=== PATIENT | male | born 1940 | race Caucasian/White ===

== ENCOUNTER 2018-01-09 12:48 | Emergency (ER) | payer MEDICARE, OTHER ==
[2018-01-09] MEDS ORDERED: Silver Nitrate Applicator Each TOP ONE (14:01)
--- NOTE | 2018-01-09 14:38 | EDM.PDOC ---
ED HPI GENERAL MEDICAL PROBLEM - General Chief Complaint: ENT Problem Stated Complaint: NOSE BLEED Time Seen by Provider: 01/09/18 13:30 Source of Information: Reports: Patient History Limitations: Reports: No Limitations - History of Present Illness INITIAL COMMENTS - FREE TEXT/NARRATIVE: Jose is a 77-year-old male, history of heart failure, on an LVAD, on Coumadin who presents to the emergency department today with a nosebleed that started at 11:00 this morning. Patient blew his nose when he appreciated a small clot that came out of his left naris has had ongoing bleeding since that time. Patient denies any chest pain, lightheadedness or dizziness. Patient's last INR was checked on Friday and was 3.1 at that time. Onset: Today, Sudden - Related Data Allergies Allergy/AdvReac Type Severity Reaction Status Date / Time No Known Allergies Allergy Verified 04/04/16 11:28 Home Meds: Home Meds Acetaminophen [Tylenol] 650 mg PO Q6H 04/03/16 [History] Amiodarone [Cordarone] 1 tab PO DAILY 04/03/16 [History] Ascorbic Acid [C-1000] 1,000 mg PO DAILY 04/03/16 [History] Digoxin [Digox] 125 mg PO DAILY 04/03/16 [History] Docusate Sodium 100 mg PO DAILY PRN 04/03/16 [History] Fish Oil/[place]-3 Fatty Acids [Fish Oil 1,000 MG] 1 gr PO BID 04/03/16 [History] Folic Acid 1 mg PO DAILY 04/03/16 [History] Gabapentin [Neurontin] 200 mg PO TID 04/03/16 [History] Glucosamine HCl 1,200 mg PO BID 04/03/16 [History] Hydrocodone/Acetaminophen [Hydrocodon-Acetaminophen 5-325] 1 tab PO Q6H [History] Levothyroxine 1 tab PO QAM 04/03/16 [History] Multivitamin [Multi-Vitamin Daily] 1 tab PO DAILY 04/03/16 [History] Octreotide Acetate,Mi-Spheres [Sandostatin Lar Depot] 1 dose INJECT ASDIRECTED 04/03/16 [History] Omeprazole 1 cap PO BID 04/03/16 [History] Polyethylene Glycol 3350 [Glycolax] 17 gm PO DAILY PRN 04/03/16 [History] Potassium Chloride 1 tab PO QAM 04/03/16 [History] Spironolactone [Aldactone] 1 tab PO QAM 04/03/16 [History] Tamsulosin [Flomax] 1 cap PO QAM 04/03/16 [History] Torsemide 20 mg PO DAILY 04/03/16 [History] Warfarin [Coumadin] 2.5 mg PO DAILY 04/03/16 [History] atorvaSTATin [Lipitor] 10 mg PO BEDTIME 04/03/16 [History] Mexiletine 200 mg PO TID 01/09/18 [History] Past Medical History Cardiovascular History: Reports: [place] Other Cardiovascular History: Lvad device 2011 Gastrointestinal History: Reports: GI Bleed Musculoskeletal History: Reports: Fracture Neurological History: Reports: Neuropathy, Peripheral - Past Surgical History Cardiovascular Surgical History: Reports: Coronary Artery Bypass, Coronary Artery Stent, Other (See Below) Other Cardiovascular Surgeries/Procedures: LVAD GI Surgical History: Reports: Hernia, Abdominal, Hernia, Inguinal Musculoskeletal Surgical History: Reports: Knee Replacement Social & Family History - Tobacco Use Smoking Status *Q: Never Smoker Second Hand Smoke Exposure: No - Caffeine Use Caffeine Use: Reports: Soda - Alcohol Use Days Per Week of Alcohol Use: 2 Number of Drinks Per Day: 1 Total Drinks Per Week: 2 - Recreational Drug Use Recreational Drug Use: No ED ROS ENT - Review of Systems Review Of Systems: ROS reveals no pertinent complaints other than HPI. ED EXAM, ENT - Physical Exam Exam: See Below Exam Limited By: No Limitations General Appearance: Alert, WD/WN, No Apparent Distress Nose: Normal Inspection, Dried Blood, Other (Patient has placed Kleenex of left naris, this is saturated with blood, no blood coming from around the packing.) Mouth/Throat: Normal Inspection Head: Atraumatic Respiratory/Chest: No Respiratory Distress Cardiovascular: Other (LVAD) Neurological: Alert, Oriented, CN II-XII Intact Psychiatric: Normal Affect, Normal Mood Course - Vital Signs Last Recorded V/S: Jose is a 77-year-old male, history of heart failure, on an LVAD and anticoagulated on Coumadin who presents to the emergency department today with ongoing left-sided nosebleed since 11:00 this morning. Please refer to history of present illness and focused exam. Patient on arrival here is hemodynamically stable, he denies any associative symptoms such as lightheadedness or dizziness. The Kleenex was removed from left there along with a very large blood clot. On close exam it appears the blood is coming anteriorly and this was cauterized with silver nitrate after using lidocaine to anesthetize left naris. We'll monitor patient for the next 20-30 minutes to ensure that the bleeding has indeed stopped. Hemoglobin and INR will stable today, he is not supratherapeutic and hemoglobin is stable. 1515-Bleeding returned, anterior/posterior rhinorocket placed, 7.5, inflated to 10 ml's of air. Instructions given for packing, follow up Friday for removal. No further bleeding with packing. Reasons to return to the ED discussed, patient agreeable and discharged with in stable condition. - Orders/Labs/Meds Labs: Laboratory Tests 01/09/18 01/09/18 Range/Units 14:00 14:00 WBC 7.1 (4.5-11.0) K/uL RBC 4.20 L (4.30-5.90) M/uL Hgb 12.1 D (12.0-15.0) g/dL Hct 38.1 L (40.0-54.0) % MCV 91 (80-98) fL MCH 29 (27-31) pg MCHC 32 (32-36) % Plt Count 165 (150-400) K/uL Neut % (Auto) 73 H (36-66) % Lymph % (Auto) 15 L (24-44) % [place] % (Auto) 10 H (2-6) % Eos % (Auto) 2 (2-4) % Baso % (Auto) 1 (0-1) % PT 31.8 H (9.5-12.0) sec INR 2.85 H (0.80-1.20) Meds: Medications Discontinued Medications Generic Name Dose Route Start Last Admin Trade Name Freq PRN Reason Stop Dose Admin Lidocaine HCl 5 ml 01/09/18 14:03 Xylocaine-Mpf 1% INJECT 01/09/18 14:04 ONETIME ONE Silver Nitrate 1 each 01/09/18 14:01 Silver Nitrate TOP 01/09/18 14:02 ONETIME ONE Departure - Departure Time of Disposition: 15:30 Disposition: Home, Self-Care 01 Condition: Good Clinical Impression: Epistaxis - Discharge Information Instructions: Nosebleed, Adult Referrals: PCP,None [Primary Care Provider] - Forms: ED Department Discharge Additional Instructions: Return to clinic or the ED on Friday for packing removal, sooner with any complications. It was nice meeting you guys. Take care.
[2018-01-09 15:43] VITALS: BP 0/0
== END 2018-01-09 15:45 | disposition home or self-care (01) ==
LOC: JP.ED 12:48
DX: R04.0 Epistaxis (principal); Z79.899 Other long term (current) drug therapy; Z79.01 Long term (current) use of anticoagulants
CPT/HCPCS: 30901; 30903; 36415; 85025; 85610; 99281-25; 99284-25

== ENCOUNTER 2018-01-12 17:47 | Emergency (ER) | payer MEDICARE, OTHER ==
[2018-01-12 19:02] VITALS: BP 142/69
[2018-01-12] MEDS ORDERED: Bacitracin Oint 1 GM U/D Packet TOP ONE (19:15)
--- NOTE | 2018-01-12 19:22 | EDM.PDOC ---
ED HPI GENERAL MEDICAL PROBLEM - General Chief Complaint: ENT Problem Stated Complaint: NOSEBLEED Time Seen by Provider: 01/12/18 19:06 Source of Information: Reports: Patient, Old Records, RN Notes Reviewed History Limitations: Reports: No Limitations - History of Present Illness INITIAL COMMENTS - FREE TEXT/NARRATIVE: .08 Here with his Chief complaint Left-sided nosebleed History of present illness 77-year-old male who is on chronic anticoagulation with Coumadin Seen in emergency 3 days ago with left-sided nosebleed Had a Rhino Rocket in place which is was extremely painful for him Removed in the clinic this morning almost 12 hours ago Continue to have trickling from the left side of the nose. He is adamant he does not want to have that same device placed in his nose again. No dizziness lightheadedness or faintness denies pain Pain Score (Numeric/FACES): 0 - Related Data Allergies Allergy/AdvReac Type Severity Reaction Status Date / Time No Known Allergies Allergy Verified 01/12/18 18:56 Home Meds: Home Meds Acetaminophen [Tylenol] 650 mg PO Q6H PRN 04/03/16 [History] Amiodarone [Cordarone] 20 mg PO DAILY 04/03/16 [History] Ascorbic Acid [C-1000] 1,000 mg PO DAILY 04/03/16 [History] Digoxin [Digox] 125 mg PO DAILY 04/03/16 [History] Docusate Sodium 100 mg PO DAILY PRN 04/03/16 [History] Folic Acid 1 mg PO DAILY 04/03/16 [History] Gabapentin [Neurontin] 200 mg PO TID 04/03/16 [History] Hydrocodone/Acetaminophen [Hydrocodon-Acetaminophen 5-325] 1 tab PO Q6H PRN [History] Levothyroxine 175 mcg PO QAM 04/03/16 [History] Multivitamin [Multi-Vitamin Daily] 1 tab PO DAILY 04/03/16 [History] Octreotide Acetate,Mi-Spheres [Sandostatin Lar Depot] 1 dose INJECT ASDIRECTED 04/03/16 [History] Omeprazole 20 mg PO BID 04/03/16 [History] Polyethylene Glycol 3350 [Glycolax] 17 gm PO DAILY PRN 04/03/16 [History] Potassium Chloride 10 meq PO QAM 04/03/16 [History] Tamsulosin [Flomax] 0.4 mg PO QAM 04/03/16 [History] Torsemide 20 mg PO DAILY 04/03/16 [History] Warfarin [Coumadin] 2.5 mg PO DAILY 04/03/16 [History] atorvaSTATin [Lipitor] 10 mg PO BEDTIME 04/03/16 [History] Mexiletine 300 mg PO TID 01/09/18 [History] Aspirin [Kristen Chewable] 81 mg PO DAILY 01/12/18 [History] Past Medical History HEENT History: Reports: Hard of Hearing, Impaired Vision, Other (See Below) Other HEENT History: Hearing aids bilateral ears. top and bottom dentures Cardiovascular History: Reports: Angina, [place] Other Cardiovascular History: Lvad device 2011 Gastrointestinal History: Reports: GI Bleed Musculoskeletal History: Reports: Fracture Neurological History: Reports: Neuropathy, Peripheral Hematologic History: Reports: Anticoagulation Therapy - Infectious Disease History Infectious Disease History: Reports: Chicken Pox, Measles, Mumps, Shingles - Past Surgical History Cardiovascular Surgical History: Reports: Coronary Artery Bypass, Coronary Artery Stent, Other (See Below) Other Cardiovascular Surgeries/Procedures: LVAD GI Surgical History: Reports: Hernia, Abdominal, Hernia, Inguinal Musculoskeletal Surgical History: Reports: Knee Replacement Social & Family History - Tobacco Use Smoking Status *Q: Never Smoker - Caffeine Use Caffeine Use: Reports: Coffee - Recreational Drug Use Recreational Drug Use: No ED ROS ENT - Review of Systems Review Of Systems: See Below Constitutional: Reports: No Symptoms HEENT: Reports: Nosebleed, Nose Pain, Other (Bruising left eye) Respiratory: Reports: No Symptoms Cardiovascular: Reports: No Symptoms GI/Abdominal: Reports: No Symptoms Skin: Reports: No Symptoms Hematologic/Lymphatic: Reports: Easy Bleeding (On warfarin) ED EXAM, ENT - Physical Exam Exam: See Below Exam Limited By: No Limitations General Appearance: Alert, Mild Distress Eye Exam: Left Eye: Periorbital Changes (Some hematoma around the left eye), Bilateral Eye: Normal Inspection, PERRL Ears: Normal External Exam, Hearing Loss (Chronic) Nose: Nasal Swelling (Left side), Nasal Tenderness, Other (Raw nasal mucosa left side with some active bleeding, small amount watery discharge) Mouth/Throat: Normal Inspection Respiratory/Chest: No Respiratory Distress, No Accessory Muscle Use Neurological: Alert, Oriented ED ENT PROCEDURES - Epistaxis Procedure Indication: Epistaxis Recent anticoagulants/antiplatlets: Yes Uncontrolled HTN: No Recent septal/nasal surgery: Other (see below) (Recent treatment for same) Site of bleeding: Left Nare, Anterior Clearing of clots: Other (Minimal clotting) Topical Meds: Other Ice pack to area: No (None) Anterior Packing: Nasal Tampon Complications: No Complication Description: Patient tolerated splint placement, preferred this immensely over the balloon. 15 minutes later bleeding was still well controlled Course - Vital Signs Last Recorded V/S: Last Vital Signs Temp 37.3 C 01/12/18 19:01 Pulse 83 01/12/18 19:01 Resp 16 01/12/18 19:01 BP 142/69 H 01/12/18 19:01 Pulse Ox 100 01/12/18 19:01 - Orders/Labs/Meds Meds: Medications Discontinued Medications Generic Name Dose Route Start Last Admin Trade Name Nevin PRN Reason Stop Dose Admin Bacitracin 2 dose 01/12/18 19:15 01/12/18 19:31 Bacitracin Oint 1 Gm TOP 01/12/18 19:16 2 dose ONETIME ONE Administration - Re-Assessments/Exams Free Text/Narrative Re-Assessment/Exam: 01/12/18 19:20 77-year-old male with left-sided nosebleed despite 3 days of pressure with nasal balloon. Quite raw inside the nose with wide area of bleeding, cautery not likely to be successful Recommend a sponge rather than the balloon 01/13/18 03:32 See procedure note Bleeding well controlled with nasal sponge Have it removed in 2-3 days Return to emergency if worsening Departure - Departure Time of Disposition: 20:06 Disposition: Home, Self-Care 01 Condition: Good Clinical Impression: Left-sided nosebleed - Discharge Information Instructions: Nosebleed, Adult, [id number] Referrals: PCP,None [Primary Care Provider] - Forms: ED Department Discharge Additional Instructions: Follow-up appointment in 3 days at your clinic for sponge removal Return to emergency if bleeding recurs and you cannot control it at [facility]
== END 2018-01-12 20:14 | disposition home or self-care (01) ==
LOC: JP.ED 17:47
DX: R04.0 Epistaxis (principal); Z79.01 Long term (current) use of anticoagulants; Z79.899 Other long term (current) drug therapy
CPT/HCPCS: 30901; 99283-25

== ENCOUNTER 2018-01-30 23:49 | Emergency (ER) | payer MEDICARE, OTHER ==
--- NOTE | 2018-01-31 00:50 | EDM.PDOC ---
ED HPI GENERAL MEDICAL PROBLEM - General Chief Complaint: Cardiovascular Problem Stated Complaint: MEDICAL [facility]IA [facility] Time Seen by Provider: 01/31/18 00:43 Source of Information: Reports: Patient History Limitations: Reports: No Limitations - History of Present Illness INITIAL COMMENTS - FREE TEXT/NARRATIVE: Pt arrived with a history of his defibrillator going off 3 times. He has been a little more tired but he otherwise is doing well. He has not been excessively sob. He recently did have a nose bleed that was very difficult to stop. Onset: Today, Sudden Duration: Hour(s): Location: Reports: Chest, Other (pt ) Associated Symptoms: Reports: Other ( defribrillator is going off) - Related Data Allergies Allergy/AdvReac Type Severity Reaction Status Date / Time No Known Allergies Allergy Verified 01/12/18 18:56 Home Meds: Home Meds Acetaminophen [Tylenol] 650 mg PO Q6H PRN 04/03/16 [History] Amiodarone [Cordarone] 200 mg PO DAILY 04/03/16 [History] Ascorbic Acid [C-1000] 1,000 mg PO DAILY 04/03/16 [History] Digoxin [Digox] 125 mg PO DAILY 04/03/16 [History] Docusate Sodium 100 mg PO DAILY PRN 04/03/16 [History] Folic Acid 1 mg PO DAILY 04/03/16 [History] Gabapentin [Neurontin] 200 mg PO TID 04/03/16 [History] Hydrocodone/Acetaminophen [Hydrocodon-Acetaminophen 5-325] 1 tab PO Q6H PRN [History] Levothyroxine 175 mcg PO QAM 04/03/16 [History] Multivitamin [Multi-Vitamin Daily] 1 tab PO DAILY 04/03/16 [History] Octreotide Acetate,Mi-Spheres [Sandostatin Lar Depot] 1 dose INJECT ASDIRECTED 04/03/16 [History] Omeprazole 20 mg PO BID 04/03/16 [History] Polyethylene Glycol 3350 [Glycolax] 17 gm PO DAILY PRN 04/03/16 [History] Potassium Chloride 10 meq PO QAM 04/03/16 [History] Tamsulosin [Flomax] 0.4 mg PO QAM 04/03/16 [History] Torsemide 20 mg PO BID 04/03/16 [History] Warfarin [Coumadin] 2.5 mg PO DAILY 04/03/16 [History] atorvaSTATin [Lipitor] 10 mg PO BEDTIME 04/03/16 [History] Mexiletine 300 mg PO TID 01/09/18 [History] Aspirin [Kristen Chewable] 81 mg PO DAILY 01/12/18 [History] Past Medical History HEENT History: Reports: Hard of Hearing, Impaired Vision, Other (See Below) Other HEENT History: Hearing aids bilateral ears. top and bottom dentures Cardiovascular History: Reports: Angina, [place] Other Cardiovascular History: Lvad device 2011 Gastrointestinal History: Reports: GI Bleed Musculoskeletal History: Reports: Fracture Neurological History: Reports: Neuropathy, Peripheral Hematologic History: Reports: Anticoagulation Therapy - Infectious Disease History Infectious Disease History: Reports: Chicken Pox, Measles, Mumps - Past Surgical History Cardiovascular Surgical History: Reports: Coronary Artery Bypass, Coronary Artery Stent, Other (See Below) Other Cardiovascular Surgeries/Procedures: LVAD GI Surgical History: Reports: Hernia, Abdominal, Hernia, Inguinal Musculoskeletal Surgical History: Reports: Knee Replacement Social & Family History - Tobacco Use Smoking Status *Q: Never Smoker - Caffeine Use Caffeine Use: Reports: None - Recreational Drug Use Recreational Drug Use: No ED ROS GENERAL - Review of Systems Review Of Systems: See Below Constitutional: Reports: No Symptoms HEENT: Reports: No Symptoms Respiratory: Reports: No Symptoms Cardiovascular: Reports: Other (LVad device was inserted in 2011. He has a pacemaker defirillator in place and this has gone off 3 times tonight. The last time was 2 hours ago. He feels the same and he is stable. ) Endocrine: Reports: No Symptoms GI/Abdominal: Reports: No Symptoms : Reports: No Symptoms Musculoskeletal: Reports: No Symptoms Skin: Reports: No Symptoms ED EXAM, GENERAL - Physical Exam Exam: See Below Free Text/Narrative:: Pt has a Lvad pump and he has a pacemaker and defibrillator in place. The defirillator has gone off 3 times tonight. He does not seem unstable and has not felt any different than usual. Exam Limited By: No Limitations General Appearance: Alert, No Apparent Distress, Other (Pt had the defibrillator go off 3 times tonight. He does not feel different than usual.) Ears: Normal TMs Nose: Normal Inspection Throat/Mouth: Normal Inspection Head: Atraumatic Neck: Normal Inspection Respiratory/Chest: No Respiratory Distress Cardiovascular: Regular Rate, Rhythm GI/Abdominal: Soft, Non-Tender (Male) Exam: Deferred Rectal (Males) Exam: Deferred Back Exam: Normal Inspection Extremities: Normal Inspection, Other (pt has some edema but he feels it is less. ) Neurological: Alert, Oriented, Normal Cognition Psychiatric: Normal Affect Course - Vital Signs Last Recorded V/S: Last Vital Signs Temp 36.1 C 01/30/18 23:52 Pulse 136 H 01/31/18 04:48 Resp 15 01/31/18 04:48 BP 92/71 01/31/18 04:48 Pulse Ox 98 01/31/18 04:48 - Orders/Labs/Meds Orders: Active Orders 24 hr Category Date Time Status EKG Documentation Completion [RC] ASDIRECTED Care 01/31/18 01:14 Active Chest 1V Frontal [CR] Stat Exams 01/31/18 00:34 Taken EKG 12 Lead [EK] Routine Ther 01/31/18 01:14 Ordered Labs: Laboratory Tests 01/30/18 01/30/18 01/30/18 Range/Units 23:51 23:51 23:51 WBC 7.8 (4.5-11.0) K/uL RBC 3.61 L (4.30-5.90) M/uL Hgb 9.7 L D (12.0-15.0) g/dL Hct 31.7 L (40.0-54.0) % MCV 88 (80-98) fL MCH 27 (27-31) pg MCHC 31 L (32-36) % Plt Count 185 (150-400) K/uL Neut % (Auto) 72 H (36-66) % Lymph % (Auto) 14 L (24-44) % [place] % (Auto) 12 H (2-6) % Eos % (Auto) 2 (2-4) % Baso % (Auto) 0 (0-1) % PT 37.9 H (9.5-12.0) sec INR 3.71 H (0.80-1.20) Sodium 134 L (140-148) mmol/L Potassium 3.7 (3.6-5.2) mmol/L Chloride 99 L (100-108) mmol/L Carbon Dioxide 28 (21-32) mmol/L Anion Gap 10.7 (5.0-14.0) mmol/L BUN 26 H (7-18) mg/dL Creatinine 1.4 H (0.8-1.3) mg/dL Est Cr Clr Drug Dosing 56.57 mL/min Estimated GFR (MDRD) 49 L (>60) Glucose 121 H (74-106) mg/dL Calcium 8.4 L (8.5-10.1) mg/dL Magnesium (1.8-2.4) mg/dL Total Bilirubin 0.9 (0.2-1.0) mg/dL AST 23 (15-37) U/L ALT 24 (12-78) U/L Alkaline Phosphatase 87 (46-116) U/L Total Protein 6.7 (6.4-8.2) g/dL Albumin 3.2 L (3.4-5.0) g/dL Globulin 3.5 (2.3-3.5) g/dL Albumin/Globulin Ratio 0.9 L (1.2-2.2) 01/31/18 Range/Units 00:37 WBC (4.5-11.0) K/uL RBC (4.30-5.90) M/uL Hgb (12.0-15.0) g/dL Hct (40.0-54.0) % MCV (80-98) fL MCH (27-31) pg MCHC (32-36) % Plt Count (150-400) K/uL Neut % (Auto) (36-66) % Lymph % (Auto) (24-44) % [place] % (Auto) (2-6) % Eos % (Auto) (2-4) % Baso % (Auto) (0-1) % PT (9.5-12.0) sec INR (0.80-1.20) Sodium (140-148) mmol/L Potassium (3.6-5.2) mmol/L Chloride (100-108) mmol/L Carbon Dioxide (21-32) mmol/L Anion Gap (5.0-14.0) mmol/L BUN (7-18) mg/dL Creatinine (0.8-1.3) mg/dL Est Cr Clr Drug Dosing mL/min Estimated GFR (MDRD) (>60) Glucose (74-106) mg/dL Calcium (8.5-10.1) mg/dL Magnesium 1.5 L (1.8-2.4) mg/dL Total Bilirubin (0.2-1.0) mg/dL AST (15-37) U/L ALT (12-78) U/L Alkaline Phosphatase (46-116) U/L Total Protein (6.4-8.2) g/dL Albumin (3.4-5.0) g/dL Globulin (2.3-3.5) g/dL Albumin/Globulin Ratio (1.2-2.2) Meds: Medications Discontinued Medications Generic Name Dose Route Start Last Admin Trade Name Nevin PRN Reason Stop Dose Admin Magnesium Sulfate 2 gm/ Premix 50 mls @ 12.5 mls/hr 01/31/18 01:18 01/31/18 01:30 IV 01/31/18 05:17 12.5 mls/hr ONETIME ONE Administration Metoprolol Tartrate 2.5 mg 01/31/18 04:14 01/31/18 04:16 Lopressor IVPUSH 01/31/18 04:15 2.5 mg ONETIME ONE Administration Metoprolol Tartrate 2.5 mg 01/31/18 04:22 01/31/18 04:44 Lopressor IVPUSH 01/31/18 04:23 2.5 mg ONETIME ONE Administration - Re-Assessments/Exams Free Text/Narrative Re-Assessment/Exam: 01/31/18 01:07 pt has a stable hg. He is to maintain his INR at 2.5 and at this point it is 3.7. He has a chest xray which does not show effusions. 01/31/18 01:08 [facility] was called to see if they could interogate his defibrilator and they could not do that on the weekend. 01/31/18 01:21 Pt was found to have a mag at 1.5 and he will be given 2 gm of magnesium. 01/31/18 01:22 01/31/18 02:50 The pacemaketr defibrilator was interigated and he had 3 episodes of vtach which was converted by the defiberalator. He has not had further activity for the last 5-6 hours The Ivad team was contacted and they felt he should push fluids. The pt was given the magnesium and he will be discharged home and he will see the team soon. 01/31/18 05:01 pt was ready to be discharged and he developed a heart rate in the 140 range and this was sustained. This is wide complex but did look regular. His Lvad team was consulted and it was suggested that he be given lopressor 5 mg total to see if he would convert. This did not convert him but he went to the bathroom and he did bear down and he converted. The Lvad team was contacted and felt like he could go home. 01/31/18 05:22 Departure - Departure Time of Disposition: 05:24 Disposition: Home, Self-Care 01 Condition: Fair Clinical Impression: Defibrillator discharge, Hypomagnesemia, LVAD (left ventricular assist device) present Referrals: PCP,None [Primary Care Provider] - Forms: ED Department Discharge Care Plan Goals: Ivad team in [place] will see him soon, push fluids, hold coumadin tomorrow take it Friday, recheck an INR on Friday. - My Orders Last 24 Hours: My Active Orders 01/31/18 00:34 Chest 1V Frontal [CR] Stat 01/31/18 01:14 EKG Documentation Completion [RC] ASDIRECTED EKG 12 Lead [EK] Routine - Assessment/Plan Last 24 Hours: My Active Orders 01/31/18 00:34 Chest 1V Frontal [CR] Stat 01/31/18 01:14 EKG Documentation Completion [RC] ASDIRECTED EKG 12 Lead [EK] Routine
[2018-01-31] MEDS ORDERED: Magnesium Sulfate/Water 2 GM in Premix Bag 1 BAG IV ONE (01:18)
[2018-01-31] MEDS ORDERED: Metoprolol Tartrate 2.5 MG in Sodium Chloride 0.9% 50 ML IV ONE (04:05)
[2018-01-31] MEDS ORDERED: Metoprolol Tartrate 5 MG/5 ML SDV IVPUSH ONE ×2 (04:14→04:22)
[2018-01-31 04:45] VITALS: BP 92/71
--- NOTE | 2018-02-02 08:59 | CR ---
CHEST: Portal CLINICAL HISTORY:Shortness of breath COMPARISON:2016 FINDINGS: The heart is enlarged. Pulmonary vascularity is mildly cephalized. No infiltrates are seen There has been previous sternotomy. There is a permanent cardiac pacer/defibrillator.. IMPRESSION: Cardiomegaly with mild vascular cephalization may represent some pulmonary venous hypert ension Previous sternotomy Permanent cardiac pacer/defibrillator
== END 2018-01-31 05:47 | disposition home or self-care (01) ==
LOC: JP.ED 23:49
DX: E83.42 Hypomagnesemia (principal); Z79.899 Other long term (current) drug therapy; Z95.810 Presence of automatic (implantable) cardiac defibrillator; Z95.818 Presence of other cardiac implants and grafts
CPT/HCPCS: 36415; 71045; 80053; 83735; 85025; 85610; 93005; 99285; J3475; J3490